=== PATIENT | female | born 1975 | race Caucasian/White ===

== ENCOUNTER 2022-02-19 14:34 | Emergency (ER) | payer OTHER, SELFPAY ==
--- NOTE | ~2022-02-19 | CT_ITS ---
EXAMINATION: CT IAC/mastoids BI wo con DATE: 02/19/2022 17:13 INDICATION: End-stage injury to the left ear with rupture of the tympanic membrane and dizziness TECHNIQUE: High resolution computed tomography (CT) of the bilateral temporal bones including interna l artery canals and mastoids was performed without intravenous contrast. Additional sagittal and darcy nal reconstructions were performed. Automated exposure control and iterative reconstruction technique were employed. The dose-length product was 260.14 mGy-cm. COMPARISON: None FINDINGS: No fractures. There is small amount of fluid in the left middle ear cavity along the inner side of th e tympanic membrane and along the ossicular chain which appears to remain in normal position. The rig ht middle ear cavity and ossicular chain remain normal. Bilateral mastoid air cells are clear with no effusion. Bilateral temporomandibular joints are normal alignment. Small amount of heterotopic ossif ication along the cartilage of both ureters. Bilateral orbits are normal. Mucosal thickening the post erior right ethmoid sinus. Visualized portion of the brain is unremarkable with no acute intracranial hemorrhage, acute infarction or abnormal extra axial fluid collection. Ventricles are normal and sym metric. No mass/mass effect. IMPRESSION: 1. Small amount of fluid in the left middle ear cavity with no fracture or evident displacement of th e ossicular chain. Reviewed, dictated and finalized at location A. IMPRESSION: 1. Small amount of fluid in the left middle ear cavity with no fracture or evid ent displacement of the ossicular chain.
[2022-02-19 14:43] VITALS: BP 122/97; PULSE 91; RESP 18; TEMP 36.6; O2SAT 99
[2022-02-19] MEDS: HYDROcodone/acetaminophen (*CRX) 5-325 MG TABLET 1 TAB PO (16:49)
[2022-02-19] MEDS: IBUPROFEN 400 MG TABLET 800 MG PO (16:50)
--- NOTE | 2022-02-19 17:45 | ED.GENADULT ---
HPI - General Adult General Chief complaint: Ear Stated complaint: left ear injury - patient fell on pole Time Seen by Provider: 02/19/22 15:53 History of Present Illness HPI narrative: This is a 46-year-old female presenting ED with left ear pain. Patient states that she fell onto a plastic tent stake which entered her left ear canal. She does have some pain, loss of hearing and dizziness now. She denies any facial droop. Patient denies any other symptoms. Related Data Allergies Allergy/AdvReac Type Severity Reaction Status Date / Time Penicillins Allergy Unknown Verified 12/19/14 00:11 pineapple Allergy Unknown Verified 12/19/14 00:11 ORANGE JUICE WITH PULP Allergy Unknown Uncoded 12/19/14 00:11 Review of Systems Review of Systems: CONSTITUTIONAL: Denies night sweats. EYES: No eye pain ENT: Denies rhinorrhea CARDIOVASCULAR: Denies palpitations RESPIRATORY: Denies hemoptysis GASTROINTESTINAL: Denies hematemesis GENITOURINARY: Denies hematuria. SKIN: Denies rash MUSCULOSKELETAL: Denies myalgia. NEUROLOGIC: Denies weakness. PSYCHIATRIC: Denies delusions [facility] Family History Family History Father Hypertension Family history of elevated blood lipids Cerebrovascular accident Mother Hypertension Family history of elevated blood lipids Social History Social History Social History: Patient endorses occasional alcohol use, denies past tobacco or illicit drug use. Alcohol intake: never Exam Narrative: APPEARANCE: No apparent distress. Head atraumatic. EYES: PERRLA/EOMI, ENT: Left ear canal has erythema and dried blood in the auditory canal. No visible tympanic membrane NOSE: Normal no drainage NECK: Supple, Trachea midline RESPIRATORY: CTAB, No increased work of breathing. CARDIOVASCULAR: S1S2 appreciated ABDOMINAL: Soft, nontender, nondistended, MUSCULOSKELETAl: No obvious deformities NEURO: Alert. Moving 4/4 extremities SKIN:: Warm, dry. Normal color PSYCHIATRIC: Normal affect Course Vital Signs Vital signs: Vital Signs Temperature 97.9 F 02/19/22 14:43 Pulse Rate 91 02/19/22 14:43 Respiratory Rate 18 02/19/22 14:43 Blood Pressure 122/97 H 02/19/22 14:43 Pulse Oximetry 99 02/19/22 14:43 Oxygen Delivery Room Air 02/19/22 14:43 Temperature 97.9 F 02/19/22 14:43 Pulse Rate 91 02/19/22 14:43 Respiratory Rate 18 02/19/22 14:43 Blood Pressure 122/97 H 02/19/22 14:43 Pulse Oximetry 99 02/19/22 14:43 Oxygen Delivery Room Air 02/19/22 14:43 Medical Decision Making MDM Narrative Medical decision making narrative: this is a 46-year-old female was the ED with a tympanic membrane injury. She is complaining of some hearing loss and some dizziness. CT was ordered which did not reveal a disruption of the ossicle change. I consulted the [facility] ENT service believes that she can follow up in 1 weeks time at the outpatient clinic. Vital Signs Vital Signs: Vital Signs Temperature 97.9 F 02/19/22 14:43 Pulse Rate 91 02/19/22 14:43 Respiratory Rate 18 02/19/22 14:43 Blood Pressure 122/97 H 02/19/22 14:43 Pulse Oximetry 99 02/19/22 14:43 Oxygen Delivery Room Air 02/19/22 14:43 Temperature 97.9 F 02/19/22 14:43 Pulse Rate 91 02/19/22 14:43 Respiratory Rate 18 02/19/22 14:43 Blood Pressure 122/97 H 02/19/22 14:43 Pulse Oximetry 99 02/19/22 14:43 Oxygen Delivery Room Air 02/19/22 14:43 Discharge Plan Discharge Clinical Impression: Tympanic membrane perforation Patient Disposition: Home, Self-Care Condition: Stable Instructions: Antibiotic Form, Ruptured Eardrum (ED) Additional Instructions: Please follow-up at the [facility] ENT clinic with Dr. Simpson or Dr. Davis. They can be reached at [phone]. Please use Ciprodex ear drops 4 drops in her left ear twice daily until the seen
== END 2022-02-19 18:14 | disposition home or self-care (01) ==
PROVIDERS: Emergency Provider Emergency Medicine
DX: S09.22XA Traumatic rupture of left ear drum, initial encounter (principal); W18.30XA Fall on same level, unspecified, initial encounter
CPT/HCPCS: 70480; 99284; A9270

== ENCOUNTER 2023-04-16 19:01 | Emergency (ER) | payer OTHER, SELFPAY ==
--- NOTE | ~2023-04-16 | XR_ITS ---
EXAMINATION: XR forearm LT 2V INDICATION: Left forearm pain and swelling TECHNIQUE: Two views of the left forearm are obtained. COMPARISON: None available FINDINGS: No fracture, dislocation, or subluxation. The bones, soft tissues, and joint spaces are nor mal. IMPRESSION: 1. No acute osseous abnormality. Reviewed, dictated and finalized at location F.
--- NOTE | ~2023-04-16 | XR_ITS ---
EXAMINATION: XR humerus LT INDICATION: Left upper extremity pain TECHNIQUE: Two views of the left humerus are obtained. COMPARISON: None available FINDINGS: Bone alignment is normal. There is no fracture. 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 The soft tissues are unremarkable. IMPRESSION: 1. No acute osseous abnormality. Reviewed, dictated and finalized at location F.
[2023-04-16 19:33] VITALS: BP 148/95; PULSE 93; RESP 18; TEMP 37; O2SAT 98
--- NOTE | 2023-04-16 20:14 | ED.SKABFB ---
HPI - Skin/Abscess/Foreign Bdy General Chief complaint: Skin/Abscess/Foreign Body Stated complaint: puncture wound Time Seen by Provider: 04/16/23 20:12 History of Present Illness HPI narrative: 47-year-old female reports for evaluation for puncture wound to the dorsum of her proximal left forearm. Patient states today she was playing in the [place] and jumping around when she tripped and fell on a board that had a nail in it. She is reporting pain and redness to the site. She denies paresthesias or difficulty with range of motion of her arm or hand. Last tetanus unknown. Related Data Allergies Allergy/AdvReac Type Severity Reaction Status Date / Time Penicillins Allergy Unknown Hives Verified 04/16/23 20:09 pineapple Allergy Unknown Hives Verified 04/16/23 20:09 ORANGE JUICE WITH PULP Allergy Unknown Hives Uncoded 04/16/23 20:09 Review of Systems Review of Systems: CONSTITUTIONAL: Denies fever, chills EYES: Denies visual changes, redness, or discharge. ENT: Denies rhinorrhea, congestion, sore throat, or otalgia. CARDIOVASCULAR: Denies chest pain, palpitations, or edema. RESPIRATORY: Denies cough or dyspnea. GASTROINTESTINAL: Denies abdominal pain, nausea, vomiting, or diarrhea. GENITOURINARY: Denies dysuria or hematuria. SKIN: See HPI MUSCULOSKELETAL: Denies back pain, joint pain, or myalgia. NEUROLOGIC: Denies headache, numbness, dizziness, or weakness. PSYCHIATRIC: Denies anxiety or depression. [facility] Family History Family History Father Hypertension Family history of elevated blood lipids Cerebrovascular accident Mother Hypertension Family history of elevated blood lipids Social History Social History Social History: Patient endorses occasional alcohol use, denies past tobacco or illicit drug use. Alcohol intake: never Exam Narrative: GENERAL: Well-appearing, in no acute distress. Patient resting comfortably in exam bed. She is pleasant and conversational. HEAD: Normocephalic NECK: Supple. CHEST: No respiratory distress. Clear to auscultation, no adventitious breath sounds. HEART: Regular rate and rhythm. No murmur heard. Normal peripheral pulses. EXTREMITIES: Normal range of motion. No edema. SKIN: Small circular punctum to the dorsum of the proximal forearm with 1 cm surrounding redness. No fluctuance or drainage. Full range of motion of elbow and hand. Sensation intact. Radial pulse 2+. NEURO: No focal deficits. Alert and oriented x3. PSYCH: Normal mood and affect. Course Vital Signs Vital signs: Vital Signs Temperature 98.6 F 04/16/23 19:33 Pulse Rate 93 04/16/23 19:33 Respiratory Rate 18 04/16/23 19:33 Blood Pressure 148/95 H 04/16/23 19:33 Pulse Oximetry 98 04/16/23 19:33 Oxygen Delivery Room Air 04/16/23 19:33 Temperature 98.6 F 04/16/23 19:33 Pulse Rate 93 04/16/23 19:33 Respiratory Rate 18 04/16/23 19:33 Blood Pressure 148/95 H 04/16/23 19:33 Pulse Oximetry 98 04/16/23 19:33 Oxygen Delivery Room Air 04/16/23 19:33 MDM - Skin/Abscess/Foreign Bdy MDM Narrative Medical decision making narrative: 47-year-old female reports for evaluation for a puncture wound from a nail to her forearm that occurred prior to arrival. See HPI for further history. Vitals unremarkable other than mildly elevated blood pressure. Exam significant for the above. X-rays without foreign body or acute osseous abnormality. Wound irrigated with saline. Antibiotic ointment and Band-Aid applied. Tdap offered however patient declined. I discussed the risks of tetanus and the importance for vaccination, however patient adamantly declined and states she will follow-up to receive a vaccination if she changes her mind. First dose of Keflex provided in the ED and Keflex and to pharmacy. Encouraged the patient to take Tylenol ibuprofen as needed for p
--- NOTE | 2023-04-16 21:35 | PC.NURSE ---
pt refuses to get tetnus shot. pt was educated on risk of not getting this shot and would still like to refuse after education.
--- NOTE | 2023-04-16 21:39 | PC.NURSE ---
doctor also educated pt of risk of not getting tetnus shot, pt still refuses.
[2023-04-16] MEDS: CEPHALEXIN 500 MG CAPSULE PO (21:48)
== END 2023-04-16 21:55 | disposition home or self-care (01) ==
PROVIDERS: Emergency Provider Physician Assistant
DX: S51.832A Puncture wound without foreign body of left forearm, initial encounter (principal); W01.118A Fall on same level from slipping, tripping and stumbling with subsequent striking against other sharp object, initial encounter
CPT/HCPCS: 73060; 73090; 99284; A9270

== ENCOUNTER 2023-11-22 20:47 | Emergency (ER) | payer OTHER, SELFPAY ==
[2023-11-22 20:49] VITALS: BP 168/100; PULSE 98; RESP 14; TEMP 36.5; O2SAT 99
--- NOTE | 2023-11-22 21:16 | ED.FEMALEGU ---
HPI - Female Genitourinary General Chief complaint: Urogenital-Female Stated complaint: buring with urination Time Seen by Provider: 11/22/23 21:00 Source: patient Mode of arrival: ambulatory Limitations: no limitations History of Present Illness HPI Narrative: This is a 48-year-old female who presents to the ED with chief complaint of dysuria x2 days. Reports vaginal discharge as well as concern for possible STD. Reports that she is concerned that she may have got trach from her boyfriend. Reports fevers up to 101? F at home. Denies nausea, vomiting, irregular bowel movements, abdominal pain, chest pain, cough. Related Data Allergies Allergy/AdvReac Type Severity Reaction Status Date / Time Penicillins Allergy Unknown Hives Verified 04/16/23 20:09 pineapple Allergy Unknown Hives Verified 04/16/23 20:09 ORANGE JUICE WITH PULP Allergy Unknown Hives Uncoded 04/16/23 20:09 Review of Systems Review of Systems: All systems as dictated in [facility] Family History Family History Father Hypertension Family history of elevated blood lipids Cerebrovascular accident Mother Hypertension Family history of elevated blood lipids Social History Social History Social History: Patient endorses occasional alcohol use, denies past tobacco or illicit drug use. Alcohol intake: never Exam Narrative: GENERAL: Well-appearing, well-nourished, and in no acute distress. Playing on phone during exam HEAD: Normocephalic, atraumatic. EYES: PERRLA and EOMI. ENT: Nares clear, no rhinorrhea or epistaxis. Mucous membranes moist. Oropharynx without tonsillar hypertrophy exudate or other lesions. NECK: Supple. No adenopathy or masses. CHEST: No respiratory distress. Clear to auscultation. No wheezes rales or rhonchi HEART: Regular rate and rhythm. No murmur heard. Normal peripheral pulses. ABDOMEN: Bilateral flank tenderness present. Soft, otherwise nontender, nondistended, normal active bowel sounds. MSK: Normal range of motion. No edema. SKIN: Warm, dry, no rash. NEURO: Alert and oriented x3. No focal deficits. PSYCH: Normal mood and affect. Course Vital Signs Vital signs: Vital Signs Temperature 97.7 F 11/22/23 20:49 Pulse Rate 98 11/22/23 20:49 Respiratory Rate 14 11/22/23 20:49 Blood Pressure 168/100 H 11/22/23 20:49 Pulse Oximetry 99 11/22/23 20:49 Oxygen Delivery Room Air 11/22/23 20:49 Temperature 97.7 F 11/22/23 20:49 Pulse Rate 98 11/22/23 20:49 Respiratory Rate 14 11/22/23 20:49 Blood Pressure 168/100 H 11/22/23 20:49 Pulse Oximetry 99 11/22/23 20:49 Oxygen Delivery Room Air 11/22/23 20:49 MDM - Female Genitourinary MDM Narrative Medical decision making narrative: After ordering the workup for fevers and flank tenderness on exam, patient explained to the nurse and myself that she does not want any further work up besides STD testing and treatment. She is electing for empiric STD treatment at this time. I explained to her that I was concerned about her kidneys with the flank tenderness but she states that she had a fall yesterday and injured her back which would explain why she is tender. She understands that I cannot fully evaluate her presentation without the further workup. Patient will be discharged in stable condition. Rx for doxy and Flagyl given. Rocephin and 1st dose of oral antibiotics given here. Return precautions given Discharge Plan Discharge Clinical Impression: Concern about STD in female without diagnosis Patient Disposition: Home, Self-Care Condition: Stable Instructions: Antibiotic Form Prescriptions: New doxycycline hyclate 100 mg capsule 100 mg PO BID 7 Days Qty: 14 0RF metronidazole 500 mg tablet 250 mg PO Q12H 14 Days Qty: 14 0RF No Action cephalexin 500 mg capsule 500 mg PO Q6H
[2023-11-22] MEDS: DOXYCYCLINE HYCLATE 100 MG TABLET PO (22:39)
[2023-11-22] MEDS: metroNIDAZOLE 500 MG TABLET PO (22:40)
[2023-11-22] MEDS: cefTRIAXone 1 GM VIAL 0.5 GM IM (22:40)
--- NOTE | 2023-11-22 22:46 | PC.NURSE ---
patient refuses any lab testing and wants only medications. EDP made aware.
[2023-11-22 22:47] VITALS: BP 164/102; PULSE 94; RESP 15; O2SAT 100
--- NOTE | 2023-11-22 22:47 | PC.NURSE ---
2247-ENTERED PATIENT'S ROOM TO GIVE DISCHARGE INSTRUCTIONS. PATIENT NOT IN ROOM OR RESTROOM. PATIENT LEFT WITHOUT RECEIVING DISCHARGE INSTRUCTIONS. PROVIDER INFORMED.
== END 2023-11-22 22:48 | disposition home or self-care (01) ==
PROVIDERS: Emergency Provider Physician Assistant
DX: R30.0 Dysuria (principal)
CPT/HCPCS: 96372; 99283; A9270; J0696

== ENCOUNTER 2024-02-10 16:51 | Emergency (ER) | payer OTHER, SELFPAY ==
--- NOTE | 2024-02-10 16:54 | ED.SKABFB ---
HPI - Skin/Abscess/Foreign Bdy General Chief complaint: Skin/Abscess/Foreign Body Stated complaint: poison philip Time Seen by Provider: 02/10/24 16:52 Source: patient Mode of arrival: ambulatory Limitations: no limitations History of Present Illness HPI narrative: Yesenia is a 48-year-old female patient presenting to clinic today with complaints of rash/possible poison philip. She reports she has had this rash for approximately 2 weeks. Has been trying calamine lotion to the rash without relief. States the rash is very itchy and she has been scratching it and now the rash is spreading. States that she has the rash on her legs arms and and her genital area. Has been scratching at that the rash is now open and has some scabbing with localized redness. Related Data Allergies Allergy/AdvReac Type Severity Reaction Status Date / Time Penicillins Allergy Unknown Hives Verified 02/10/24 16:52 pineapple Allergy Unknown Hives Verified 02/10/24 16:52 ORANGE JUICE WITH PULP Allergy Unknown Hives Uncoded 02/10/24 16:52 Review of Systems Review of Systems: Pertinent positives per HPI. Patient denies any fever, chills, headache, visual changes, dizziness, cough, runny nose, sore throat, shortness of breath, chest pain, palpitations, nausea, vomiting, diarrhea, constipation, abdominal pain, or any urinary issues. PMFSH Family History Family History Father Hypertension Family history of elevated blood lipids Cerebrovascular accident Mother Hypertension Family history of elevated blood lipids Social History Social History Social History: Patient endorses occasional alcohol use, denies past tobacco or illicit drug use. Alcohol intake: never Comments At the time of my signature, I reviewed and agree with the nursing past medical, surgical, social, and family history. There is no relevant family history pertinent to the patient complaint. Exam Narrative: General: Well-developed, well nourished, in no apparent distress Head: Normocephalic, atraumatic. Cardio: Regular rate and rhythm, s1 and s2 normal, no murmur appreciated. Resp: Clear to auscultation bilaterally, no rhonchi, rales, wheezing or rubs. Integumentary: Vazquez, warm, and dry, red, raised, mildly tender, itchy rash with scabbing to the lower legs and arms. Course Course Emergency Course: Portions of this record may have been created with voice recognition software. Level of Care: Express Care Visit Vital Signs Vital signs: Vital Signs Temperature 36.6 C 02/10/24 16:59 Pulse Rate 95 02/10/24 16:59 Respiratory Rate 16 02/10/24 16:59 Blood Pressure 131/90 02/10/24 16:59 Pulse Oximetry 98 02/10/24 16:59 Oxygen Delivery Room Air 02/10/24 16:59 Temperature 36.6 C 02/10/24 16:59 Pulse Rate 95 02/10/24 16:59 Respiratory Rate 16 02/10/24 16:59 Blood Pressure 131/90 02/10/24 16:59 Pulse Oximetry 98 02/10/24 16:59 Oxygen Delivery Room Air 02/10/24 16:59 Vital signs reviewed MDM - Skin/Abscess/Foreign Bdy MDM Narrative Medical decision making narrative: At the time of visit patient is resting comfortably on the exam table. Patient appears to be nontoxic. Plan: I suspect patient has dermatitis that she has scratched and possibly has a secondary infection to some of the areas. Will send in prescription for doxycycline, prednisone, and triamcinolone cream. Supportive measures were discussed with the patient and they voiced understanding discharge instructions and agrees to treatment plan. Return precautions reviewed Differential Diagnosis Differential diagnosis: Likely abscess of skin or subcutaneous tissue, viral exanthem, urticaria, cellulitis, eczema and contact dermatitis Discharge Plan Discharge Clinical Impression: Dermatitis Patient Disposition: Home, Self-Care Condition: Stabl
[2024-02-10 16:59] VITALS: BP 131/90; PULSE 95; RESP 16; TEMP 36.6; O2SAT 98
[2024-02-10] MEDS: dexAMETHasone SOD PHOS INJ 10 MG/ML 1 ML VIAL IM (17:07)
== END 2024-02-10 17:15 | disposition home or self-care (01) ==
PROVIDERS: Emergency Provider Nurse Practitioner Family
DX: L30.9 Dermatitis, unspecified (principal)
CPT/HCPCS: 96372; 99213; G0463; J1100

== ENCOUNTER 2024-04-01 16:44 | Emergency (ER) | payer OTHER, SELFPAY ==
--- NOTE | 2024-04-01 16:44 | ED.GENADULT ---
HPI - General Adult General Chief complaint: Abdominal Pain Stated complaint: Wound Check Time Seen by Provider: 04/01/24 17:09 Source: patient, RN notes reviewed and old records reviewed Mode of arrival: ambulatory Limitations: no limitations History of Present Illness HPI narrative: 48-year-old female presents to the [facility] with Had surgery on 02 March, spinal surgery. Has been wearing a neck brace and a back brace. Red swollen area to the right buttock started 05 of March. Started when she started wearing her torso brace. States when she was in rehab that she let the male put reports they have done nothing for it, since then it has drained a yellow to green pus substance Related Data Allergies Allergy/AdvReac Type Severity Reaction Status Date / Time Penicillins Allergy Unknown Hives Verified 04/01/24 16:59 pineapple Allergy Unknown Hives Verified 04/01/24 16:59 ORANGE JUICE WITH PULP Allergy Unknown Hives Uncoded 04/01/24 16:59 Review of Systems Review of Systems: All systems reviewed & are unremarkable except as noted in HPI and below Constitutional: Constitutional: Reports no additional constitutional complaints Eyes: Eyes: Reports no additional eye complaints ENT: Reports system reviewed and no additional complaints, except as documented Cardiovascular: Cardiovascular: Reports no additional cardiovascular complaints, Denies chest pain and Denies dyspnea Respiratory: Respiratory: Reports no additional respiratory complaints, Denies chest congestion, Denies cough and Denies dyspnea Gastrointestinal: Gastrointestinal: Reports no additional gastrointestinal complaints, Denies abdominal pain, Denies nausea and Denies vomiting Musculoskeletal: Musculoskeletal: Reports no additional musculoskeletal complaints Integumentary/Breasts: Skin/Breast: Reports as per HPI Neurologic: Reports system reviewed and no additional complaints, except as documented Psychiatric: Psychiatric: Reports no additional psychiatric complaints Allergic/Immunologic: Allergic/Immunologic: Reports no additional allergic/immunologic complaints [facility] Surgical History Surgical History H/O Spinal surgery Family History Family History Father Hypertension Family history of elevated blood lipids Cerebrovascular accident Mother Hypertension Family history of elevated blood lipids Social History Social History Social History: Patient endorses occasional alcohol use, denies past tobacco or illicit drug use. Alcohol intake: never Comments At the time of my signature, I reviewed and agree with the nursing past medical, surgical, social, and family history. There is no relevant family history pertinent to the patient complaint. Exam Const: General: cooperative, no acute distress, well developed, alert, anxious, ill appearing chronically, uncomfortable and well nourished Nutritional Appearance: well nourished Orientation/consciousness: patient oriented x3 Limitations: no limitations HENMT: Head: normal to inspection Ears: hearing grossly normal bilaterally and external ears normal Face/Nose/Sinus: Normal external nose present, Normal nares present, Normal nasal mucous membranes and turbinates present, normal facial exam and face symmetric Face and sinus: normal facial exam and face symmetric Eyes: General: appearance normal, both eyes and all related structures Alignment and Position: alignment normal Periorbital: periorbital findings normal Pupils: Equal, round and reactive pupils present EOM: EOMs intact bilaterally Neck: Neck: normal visual inspection, full ROM, no lymphadenopathy and no meningeal signs Chest: Chest palpation & inspection: normal inspection of the chest Resp: Effort & Inspection: normal respiratory effort and able to speak in complete se
[2024-04-01 16:56] VITALS: BP 140/87; PULSE 108; RESP 18; TEMP 36.9; O2SAT 100
[2024-04-01] MEDS: LIDOCAINE HCL 1% LOCAL INJ 2 ML AMPUL 4 ML INFILTRATE (17:21)
== END 2024-04-01 17:51 | disposition home or self-care (01) ==
PROVIDERS: Emergency Provider Nurse Practitioner
DX: L02.31 Cutaneous abscess of buttock (principal); B95.62 Methicillin resistant Staphylococcus aureus infection as the cause of diseases classified elsewhere; L03.317 Cellulitis of buttock
CPT/HCPCS: 10060; 87070; 87075; 87081; 87181; 87205; 99213; G0463